=== PATIENT | female | born 1965 | race Caucasian/White ===

== ENCOUNTER 2021-08-05 08:09 | Emergency (ER) | payer SELFPAY ==
[~2021-08-05] VITALS: Ht 146.8 cm; Wt 53.8 kg
[2021-08-05 08:14] VITALS: BP 117/85
--- NOTE | 2021-08-05 08:21 | NUR ---
PT AMB TO BED 8.
--- NOTE | 2021-08-05 08:30 | NUR ---
Dr. Hurley at bedside evaluating patient.
[2021-08-05] MEDS ORDERED: KETOROLAC 30 MG/ML VIAL IM ONE (08:35)
--- NOTE | 2021-08-05 08:40 | NUR ---
56 y/o female c/o chest pain radiating to armpit, left arm and left upper back. Patient also has a headache. Patient has a 6/10 pressure pain. Patient denies any injury or trauma. Patient also complains of flu like symptoms. Patients blood sugar was at 260 at triage. Medical History: DM Medications: Metformin NKDA
--- NOTE | 2021-08-05 09:06 | NUR ---
Radiology at bedside.
--- NOTE | 2021-08-05 09:46 | NUR ---
Dr. Hurley re-evaluating patient at bedside.
--- NOTE | 2021-08-05 09:53 | NUR ---
Patient discharged with v/s stable. Written and verbal after care instructions given. Patient verbalized understanding. Ambulatory with steady gait. All questions addressed prior to discharge. Advised to follow up with PMD.
--- NOTE | 2021-08-05 09:55 | NUR ---
The patient's care was reviewed and supervised by Josette Salomon RN.
== END 2021-08-05 09:53 | disposition home or self-care (01) ==
LOC: MED 08:09
DX: R07.89 Other chest pain (principal); M54.9 Dorsalgia, unspecified; M25.512 Pain in left shoulder; R51.9 Headache, unspecified; E11.9 Type 2 diabetes mellitus without complications
CPT/HCPCS: 71045; 81002; 81025; 93005; 96372; 99283; J1885